=== PATIENT | female | born 1965 | race Caucasian/White ===

== ENCOUNTER 2017-09-11 17:50 | Emergency (ER) | payer MEDICARE, MEDICAID ==
[2017-09-11] MEDS ORDERED: Sodium Chloride 0.9% 10 ML Syringe FLUSH PRN (18:38)
[2017-09-11] MEDS ORDERED: Albuterol/Ipratropium 3.0-0.5 MG/3 ML Neb Soln NEB ONE (19:20)
[2017-09-11] MEDS ORDERED: Budesonide 0.5 MG/2 ML Neb Susp NEB ONE (19:20)
--- NOTE | 2017-09-11 19:30 | EDM.PDOC ---
ED HPI GENERAL MEDICAL PROBLEM - General Chief Complaint: Respiratory Problem Stated Complaint: SHORT OF BREATH Time Seen by Provider: 09/11/17 19:07 Source of Information: Reports: Patient, RN Notes Reviewed History Limitations: Reports: No Limitations - History of Present Illness INITIAL COMMENTS - FREE TEXT/NARRATIVE: brought in by her daughter Chief complaint Short of breath History of present illness 52-year-old female, no history of asthma COPD or pneumonia or any lung disease Has been short of breath for a week, getting worse with a cough and chest tightness keeping her awake all last night. She was able to eat normally during the day. Feels worse tonight with her come to emergency room. Tightness in the chest but no sharp chest pain. Coryza Right earache and plugging, mild No throat pain No abdominal pain nausea vomiting or diarrhea She always has a headache. She smokes a half pack per day. Never been treated with asthma medication in the past Nonemployed, currently disabled. Chest Pain Score (Numeric/FACES): 6 - Related Data Allergies Allergy/AdvReac Type Severity Reaction Status Date / Time No Known Allergies Allergy Verified 09/11/17 18:10 Home Meds: Home Meds Albuterol Sulfate [Proair Hfa] 2 puff IH Q4H PRN #8.5 hfa.aer.ad 09/11/17 [Rx] Amitriptyline [Elavil] 50 mg PO BEDTIME 09/11/17 [History] Orphenadrine [Norflex] 100 mg PO QID 09/11/17 [History] Prednisone [IJD: Prednisone] 20 mg PO BID #30 tab 09/11/17 [Rx] QUEtiapine [SEROquel] 50 mg PO DAILY 09/11/17 [History] Past Medical History HEENT History: Reports: Impaired Vision Respiratory History: Reports: Other (See Below) Other Respiratory History: AT A [employer]IN [employer] 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 Denies: Fever, Chills, Decreased Appetite HEENT: Reports: Ear Pain, Hearing Loss, Rhinitis. Denies: Eye Discharge, Nose Pain, Throat Pain, Throat Swelling, Vision Change Respiratory: Reports: Shortness of Breath, Wheezing, Cough, Other (tightness) Cardiovascular: Denies: Chest Pain, Blood Pressure Problem, Lightheadedness, Palpitations, Syncope GI/Abdominal: Denies: Abdominal Pain, Diarrhea, Nausea, Vomiting : Reports: No Symptoms Musculoskeletal: Reports: No Symptoms Skin: Reports: No Symptoms Neurological: Reports: Headache ED EXAM, GENERAL - Physical Exam Exam: See Below Exam Limited By: No Limitations General Appearance: Alert, Mild Distress, Other (audible wheezing, no difficulty speaking, saturation 95% on room air, pulse 94(pulse of 10 reported is erroneous)) Eye Exam: Bilateral Eye: Normal Inspection Ears: Normal External Exam, Hearing Grossly Normal, Other (earwax obscuring right drum, not completely occluding canal, left canal and drum normal) Nose: Nasal Swelling (mild). No: Nasal Drainage, Nasal Flaring Throat/Mouth: Normal Inspection, Normal Oropharynx, Normal Voice Head: Atraumatic Neck: Normal Inspection, Supple, Non-Tender Respiratory/Chest: No Respiratory Distress, No Accessory Muscle Use, Rhonchi, Wheezing. No: Retractions Cardiovascular: Normal Peripheral Pulses, Regular Rate, Rhythm GI/Abdominal: Soft, Non-Tender Extremities: Normal Inspection, Non-Tender, No Pedal Edema Neurological: Alert, Oriented, Normal Cognition, No Motor/Sensory Deficits Psychiatric: Normal Affect, Normal Mood Skin Exam: Warm, Dry, Intact, Normal Color, No Rash Lymphatic: No Adenopathy Course - Vital Signs Last Recorded V/S: Last Vital Signs Temp 36.8 C 09/11/17 20:29 Pulse 95 09/11/17 20:29 Resp 14 09/11/17 20:29 BP 122/77 09/11/17 20:29 Pulse Ox 90 L 09/11/17 20:29 - Orders/Labs/Meds Orders: Active Orders 24 hr Category Date Time Status EKG Documentation Completion [RC] ASDIRECTED Care 09/11/17 18:39 Active RT Aerosol Therapy [RC] ASDIRECTED Care 09/11/17 19:21 Active RT Patient Instruction [RC] Click to Edit Care 09/11/17 20:27 Active Saline Lock Insert [OM.PC] Stat Oth 09/11/17 18:38 Ordered EKG 12 Lead [EK] Routine Ther 09/11/17 18:38 Ordered Labs: Laboratory Tests 09/11/17 09/11/17 Range/Units 18:38 18:38 WBC 9.7 (4.5-11.0) K/uL RBC 4.25 (3.30-5.50) M/uL Hgb 12.9 (12.0-15.0) g/dL Hct 38.7 (36.0-48.0) % MCV 91 (80-98) fL MCH 30 (27-31) pg MCHC 33 (32-36) % Plt Count 230 (150-400) K/uL Sodium 143 (140-148) mmol/L Potassium 4.1 (3.6-5.2) mmol/L Chloride 104 (100-108) mmol/L Carbon Dioxide 29 (21-32) mmol/L Anion Gap 9.6 (5.0-14.0) mmol/L BUN 11 (7-18) mg/dL Creatinine 0.8 (0.6-1.0) mg/dL Est Cr Clr Drug Dosing 75.26 mL/min Estimated GFR (MDRD) > 60 (>60) Glucose 89 (74-106) mg/dL Calcium 9.3 (8.5-10.1) mg/dL Meds: Medications Discontinued Medications Generic Name Dose Route Start Last Admin Trade Name Freq PRN Reason Stop Dose Admin Albuterol/Ipratropium 3 ml 09/11/17 19:20 09/11/17 19:28 Duoneb 3.0-0.5 Mg/3 Ml NEB 09/11/17 19:21 3 ml ONETIME ONE Administration Budesonide 0.5 mg 09/11/17 19:20 09/11/17 19:50 Pulmicort NEB 09/11/17 19:21 0.5 mg ONETIME ONE Administration Prednisone 20 mg 09/11/17 20:27 09/11/17 20:38 Prednisone PO 09/11/17 20:28 20 mg ONETIME ONE Administration Sodium Chloride 10 ml 09/11/17 18:38 09/11/17 18:57 Saline Flush FLUSH 10 ml ASDIRECTED PRN Administration Keep Vein Open - Re-Assessments/Exams Free Text/Narrative Re-Assessment/Exam: 09/11/17 19:31 52-year-old female with shortness of breath and cough for a week. Audible wheezing, notable bronchospasm Albuterol, ipratropium, budesonide by nebulizer 09/11/17 22:29 much improved with the above treatment very little wheezing on repeat exam Prednisone 20 mg by mouth spacer for the inhaler Prescribed albuterol and prednisone Follow-up primary care 7-10 days to recheck lungs and decide if further treatment needed Return to emergency if worsening Departure - Departure Time of Disposition: 20:27 Disposition: Admitted As Inpatient 64 Condition: Good Clinical Impression: Bronchospasm - Discharge Information Prescriptions: Albuterol Sulfate [Proair Hfa] 2 puff IH Q4H PRN #8.5 hfa.aer.ad PRN Reason: cough or wheezing Prednisone [IJD: Prednisone] 20 mg PO BID #30 tab Instructions: Bronchospasm, Adult, Metered Dose Inhaler With Spacer Referrals: PCP,None [Primary Care Provider] - Forms: ED Department Discharge Additional Instructions: Please make an appointment for 7-10 days with your doctor Return to emergency if symptoms are worsening - My Orders Last 24 Hours: My Active Orders 09/11/17 18:38 Saline Lock Insert [OM.PC] Stat EKG 12 Lead [EK] Routine 09/11/17 18:39 EKG Documentation Completion [RC] ASDIRECTED 09/11/17 19:21 RT Aerosol Therapy [RC] ASDIRECTED 09/11/17 20:27 RT Patient Instruction [RC] Click to Edit - Assessment/Plan Last 24 Hours: My Active Orders 09/11/17 18:38 Saline Lock Insert [OM.PC] Stat EKG 12 Lead [EK] Routine 09/11/17 18:39 EKG Documentation Completion [RC] ASDIRECTED 09/11/17 19:21 RT Aerosol Therapy [RC] ASDIRECTED 09/11/17 20:27 RT Patient Instruction [RC] Click to Edit
[2017-09-11] MEDS ORDERED: predniSONE 20 MG Tab PO ONE (20:27)
== END 2017-09-11 20:47 | disposition critical access hospital (66) ==
LOC: JP.ED 17:50
DX: J98.01 Acute bronchospasm (principal); F17.210 Nicotine dependence, cigarettes, uncomplicated; Z79.899 Other long term (current) drug therapy
CPT/HCPCS: 36415; 80048; 85027; 93005; 94640; 99285; A9270; J7050; J7620; 93010; J7626